=== PATIENT | female | born 1950 | race Caucasian/White ===

== ENCOUNTER 2022-05-21 13:03 | Emergency (ER) | payer OTHER, SELFPAY ==
[2022-05-21 13:40] VITALS: BP 193/94; PULSE 72; RESP 16; TEMP 36.3; O2SAT 97; BMI 26.1
--- NOTE | 2022-05-21 15:41 | CRLHL7_ITS ---
For Patients: As a result of the Century Cures Act, medical imaging exams and procedure reports are released immediately into your electronic medical record. You may view this report before your referring provider. If you have questions, please contact your health care provider. Indication: Left-sided tingling, hypertension Technique: Multiplanar, multisequence MRI of the brain obtained without contrast. Comparison: No relevant comparison studies available at this institution. Findings: The ventricles and cortical sulci appear within normal limits for age. No hydrocephalus or herniation. No acute/subacute ischemia, intracranial hemorrhage or abnormal extra-axial fluid collection. Scattered foci of FLAIR hyperintensity are noted throughout the supratentorial white matter bilaterally. Midline structures are unremarkable. Major expected intracranial flow voids are visualized. Bone marrow signal is unremarkable. No suspicious findings in the regional soft tissues. Scattered ethmoid sinus mucosal thickening, with lobulated mucous retention cysts/polyps in both maxillary sinuses. A few nonspecific fluid-filled left mastoid air cells. Unremarkable included orbits. Impression: 1. No evidence of acute intracranial abnormality. 2. 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 Dictated by Keri Marshall MD @ 05/21/2022 4:52:17 PM (Electronically Signed)
[2022-05-21 15:59] LABS: Basophils Absolute Auto 0.02 K/uL (0.00-0.30); Basophils Percent Auto 0.3 % (0.0-3.0); Eosinophils Absolute Auto 0.09 K/uL (0.00-0.50); Eosinophils Percent Auto 1.4 % (0.0-7.0); Hematocrit 47.9 % (33.0-51.0); Hemoglobin* 15.6 gm/dL (12.0-16.0); Immature Granulocytes Abs Auto 0.01 K/uL (0.00-0.30); Immature Granulocytes Pct Auto 0.2 %; Lymphocytes Absolute Auto 2.11 K/uL (0.90-2.90); Lymphocytes Percent Auto 32.2 % (20-44); Mean Corpuscular HGB Conc 33 gm/dL (32-36); Mean Corpuscular Hemoglobin 30 pg (26-34); Mean Corpuscular Volume 93 fL (80-100); Monocytes Percent Auto 8.1 % (0.0-11.0); Neutrophils Percent Auto 57.8 % (42.0-72.0); Platelet Count* 289 K/uL (140-440); RDW Coefficient of Variation % 12.7 % (11.5-15.5); Red Blood Count 5.16 m/uL (4.00-5.20); White Blood Count* 6.56 K/uL (4.50-11.00)
--- NOTE | 2022-05-21 16:04 | ED_ITS ---
HPI - General Adult General Date Seen: 05/21/22 Chief complaint: Altered Mental Status Stated complaint: Brain fog Time Seen by Provider: 05/21/22 15:28 Source: patient Mode of arrival: ambulatory Limitations: no limitations History of Present Illness HPI narrative: Patient is a 72-year-old woman with past medical history of hypertension, generally reasonably controlled, sent here from urgent care for further evaluation of some paresthesias in her left arm and leg as well as a poorly characterized head symptom. She says she has been having symptoms for about a week now. Most days she has tingling in her left arm and leg although it does not last all day, kind of comes and goes, sometimes lasts an hour or 2, sometimes last longer. She has not had any motor deficits. She says the tingling in her legs on the outside and back of her leg, tingling in her arms on the outside of her arm. When specifically asked, she says she has a little bit of tingling in her face on the left side as well. She initially said that she had a ?brain fog sensation on the left side of her head, as if her brain was not getting enough oxygen. Trying to clarify exactly what she was feeling was difficult. She says her head feels full or like it is going to explode, sometimes she has a headache but it is migratory, sometimes in the back, sometimes on the side and sometimes in front. Right now she has a little bit of a headache in the back of her head. No severe headaches. No trauma. No vomiting. No history of stroke. She has been on lisinopril 20 mg daily for about a year and a half and thinks blood pressures are usually okay although she does not check regularly. She does not smoke. Her mom had a stroke she reports at age 24 but is now in her 90s and has no residual effects. Related Data Home Medications Medication Instructions Recorded Confirmed lisinopril 20 mg tablet 20 mg PO DAILY 05/21/22 05/21/22 Allergies Allergy/AdvReac Type Severity Reaction Status Date / Time prochlorperazine Allergy Severe Verified 05/21/22 13:57 [From Compazine] Review of Systems Status of ROS: Reports: 10 or more systems reviewed and unremarkable except as noted in History and below PFSH PFSH Social History Smoking Status: Unknown if ever smoked How often do you have a drink containing alcohol: 2-4 times a month How often do you have six or more drinks on one occasion: Never AUDIT-C Alcohol total score: 2 Non-prescribed substance use: denies use Exam Narrative: Exam Narrative: Vital signs as noted above. In general, an alert, well-appearing patient. Looks comfortable, breathing easily. Head: Normocephalic, atraumatic. Eyes: Pupils are equal reactive. Extraocular movements are full. Conjunctivae are normal. ENT: Mucous membranes are moist. Throat is normal. Neck: Supple without lymphadenopathy. Heart: Regular rate and rhythm. No murmur or rub. Lungs: Clear bilaterally. No increased work of breathing, crackles or wheezes. Abdomen: Soft and nontender. No organomegaly. Extremities: Well perfused. No edema. No calf tenderness. Pulses intact. Neurologic: Patient is alert and oriented to person and place. Speech is fluent. Face is symmetric. Moves all extremities equally. Strength is 5 of 5 bilaterally. Sensation is intact, she says she has a pins and needle sensation on the left arm and leg, as well as to a lesser extent on her face. Cerebellar function is intact by finger-nose testing. Gait is normal. Affect: Labile. Skin: Warm and dry. Well perfused. Const: Vital Signs, click to edit/add: Vital Signs - 24 hr 05/21/22 13:40 05/21/22 18:17 Temperature 97.3 F L Pulse Rate [Right Pulse Oximeter] 72 Respiratory Rate 16 Blood Pressure [Ri ght Upper Arm] 193/94 H 174/92 H Pulse Oximetry 97 Oxygen Delivery Me thod Room Air Documenting provider has reviewed patient's vital signs: yes Course Course Hospital Course: Overall neurologic exam is unremarkable in terms of objective findings. She has somewhat atypical features in that her paresthesias are not affecting the entire extremity, she does not have any true numbness and no motor findings. However, she is persistently hypertensive, I think it is reasonable to rule out small stroke as the cause for her symptoms. I do not think CT is going to be very helpful today as I do not think this represents hemorrhage, so I am just going to do an MRI. This will let us look for other possible etiologies such as mass, MS. Will check some basic labs as well, thus far, CBC has shown a normal white blood cell count and hemoglobin of 15.6. Electrolytes are pending. Labs are entirely within normal limits. She remains somewhat hypertensive, but MRI was normal without evidence of infarct, mass, or other abnormalities. Mild small vessel changes. Discussed with patient I do not have a clear explanation for her left-sided paresthesias at this time, but there is no evidence of a worrisome central cause. I would recommend follow-up with her clinic doctor in the next week or so for recheck of her symptoms as well as recheck of her blood pressure as per medication may need to be adjusted. Return at any time for acute worsening Vital Signs Vital signs: Initial Vital Signs Temperature 97.3 F L 05/21/22 13:40 Temperature Source Temporal Artery Scan 05/21/22 13:40 Pulse Rate 72 05/21/22 13:40 Respiratory Rate 16 05/21/22 13:40 Blood Pressure 193/94 H 05/21/22 13:40 Blood Pressure Mean 127 05/21/22 13:40 Blood Pressure Position Sitting 05/21/22 13:40 Pulse Oximetry 97 05/21/22 13:40 Oxygen Delivery Method Room Air 05/21/22 13:40 Vital Signs Temperature 97.3 F L 05/21/22 13:40 Pulse Rate 72 05/21/22 13:40 Respiratory Rate 16 05/21/22 13:40 Blood Pressure 193/94 H 05/21/22 13:40 Pulse Oximetry 97 05/21/22 13:40 Oxygen Delivery Method Room Air 05/21/22 13:40 Temperature 97.3 F L 05/21/22 13:40 Pulse Rate 72 05/21/22 13:40 Respiratory Rate 16 05/21/22 13:40 Blood Pressure 174/92 H 05/21/22 18:17 Pulse Oximetry 97 05/21/22 13:40 Oxygen Delivery Method Room Air 05/21/22 13:40 Medical Decision Making Lab Data Labs: Lab Results 05/21/22 Range/Units 15:50 WBC 6.56 (4.50-11.00) K/uL RBC 5.16 (4.00-5.20) m/uL Hgb 15.6 (12.0-16.0) gm/dL Hct 47.9 (33.0-51.0) % MCV 93 (80-100) fL MCH 30 (26-34) pg MCHC 33 (32-36) gm/dL RDW Coeff of Yun 12.7 (11.5-15.5) % Plt Count 289 (140-440) K/uL Neut % (Auto) 57.8 (42.0-72.0) % Lymph % (Auto) 32.2 (20-44) % Cottle % (Auto) 8.1 (0.0-11.0) % Eos % (Auto) 1.4 (0.0-7.0) % Baso % (Auto) 0.3 (0.0-3.0) % Neut # (Auto) 3.80 (1.7-7.0) K/uL Lymph # (Auto) 2.11 (0.90-2.90) K/uL Cottle # (Auto) 0.50 (0.00-0.90) K/UL Eos # (Auto) 0.09 (0.00-0.50) K/uL Baso # (Auto) 0.02 (0.00-0.30) K/uL ESR <7 L (2-20) mm/hr Sodium 141 (135-149) mmol/L Potassium 4.3 (3.6-5.1) mmol/L Chloride 108 (96-114) mmol/L Carbon Dioxide 28 (20-32) mmol/L BUN 14 (7-30) mg/dL Creatinine 0.8 (0.5-1.5) mg/dL Estimated Creat Clear 46.43 Estimated GFR 79 ml/min Glucose 104 (60-115) mg/dL Calcium 9.8 (8.4-10.6) mg/dL Magnesium 2.1 (1.5-2.6) mg/dL C-Reactive Protein < 0.5 L (0.5-1.0) mg/dL Discharge Plan Discharge Clinical Impression: Paresthesia, Hypertension Patient Disposition: Home, Self-Care Condition: Stable Additional Instructions: Follow-up with primary care in the next week for recheck of your symptoms and blood pressure. Return at any time for acute worsening. Prescriptions: No Action lisinopril 20 mg tablet 20 mg PO DAILY Follow Up/Referrals: Provider,Not a Local [Primary Care Provider] - Stand Alone Forms: [employer] Info Instructions
[2022-05-21 16:07] LABS: Slide Review Reflex No
[2022-05-21] MEDS: ASPIRIN 81 MG TAB.CHEW 324 MG PO (16:08)
[2022-05-21] MEDS: LORazepam 2 MG/ML inj 1 MG IVP (16:08)
[2022-05-21 16:12] LABS: Chloride* 108 mmol/L (96-114); Sodium* 141 mmol/L (135-149)
[2022-05-21 16:13] LABS: Potassium* 4.3 mmol/L (3.6-5.1)
[2022-05-21 16:15] LABS: Creatinine* 0.8 mg/dL (0.5-1.5); Est. Creatinine Clearance* 46.43; Estimated Glomerular Filt Rate 79 ml/min
[2022-05-21 16:16] LABS: Blood Urea Nitrogen* 14 mg/dL (7-30); Calcium* 9.8 mg/dL (8.4-10.6); Carbon Dioxide* 28 mmol/L (20-32); Glucose* 104 mg/dL (60-115); Magnesium* 2.1 mg/dL (1.5-2.6)
[2022-05-21 16:20] LABS: C Reactive Protein* < 0.5 mg/dL (0.5-1.0)
[2022-05-21 17:02] LABS: Erythrocyte SedimentationRate* <7 mm/hr (2-20)
[2022-05-21 18:17] VITALS: BP 174/92
== END 2022-05-21 18:52 | disposition home or self-care (01) ==
PROVIDERS: Emergency Provider Emergency Medicine
DX: R20.2 Paresthesia of skin (principal); I10 Essential (primary) hypertension
CPT/HCPCS: 36415; 70551; 80048; 83735; 85025; 85651; 86140; 93005; 96374; 99284; A9270; J2060

== ENCOUNTER 2023-09-11 09:52 | Outpatient (CLI) | payer MEDICARE, SELFPAY ==
--- OUTSIDE RECORDS SUMMARY | 2023-09-12 11:05 | XMS_ITS | Clinical Summary ---
Author Organization [facility] Address [address] [place] [address] Care Team Providers Care Recruiting Consultant Name Role Phone [facility]- Primary Care Provider Allergies Active Allergy Reactions Criticality Noted Date Comments Compazine Other (See Comments) 02/25/2013 Jaw locks Medications Medication Sig Dispensed Refills Start Date End Date Status oxyCODONE (ROXICODONE) 5 MG tablet Take 0.5-1 tablets (2.5-5 mg) by mouth every 6 hours as needed for severe pain 10 tablet 03/03/2023 Active ondansetron (ZOFRAN ODT) 4 MG ODT tab Take 1 tablet (4 mg) by mouth every 6 hours as needed for nausea 10 tablet 03/03/2023 Active lidocaine (LIDODERM) 5 % patch Place 1-2 patches onto the skin every 24 hours 15 patch 03/03/2023 Active Active Problems Problem Noted Date Diagnosed Date Osteoarthrosis of knee 04/28/2014 Pneumothorax, right 07/30/2013 Right shoulder pain 07/06/2013 Rotator cuff (capsule) sprain 01/05/2013 Social History Tobacco Use Types Packs/Day Years Used Date Smoking Tobacco: Some Days Smokeless Tobacco: Never Alcohol Use Standard Drinks/Week Comments Yes 0 (1 standard drink = 0.6 oz pur e alcohol) Adolescent Education Answer Date Record ed Getting School Help Needed Not on file 12/02 Sex and Gender Information Value Date Recorded Sex Assigned at Not on file Gender Identity Not on file Sexual Orientation Not on file Last Filed Vital Signs Vital Sign Reading Time Taken Comments Blood Pressure 141/81 03/05/2023 12:50 PM CONDENSER OPERATOR Pulse 73 03/05/2023 12:30 PM CONDENSER OPERATOR Temperature 36.6 ??C (97.8 ??F) 03/05/2023 12:[address] Respiratory Rate 16 03/05/2023 11:55 AM CONDENSER OPERATOR Oxygen Saturation 96% 03/05/2023 12:50 PM CONDENSER OPERATOR Inhaled Oxygen Concentration - - Weight 70.3 kg (155 lb) 03/03/2023 2:56 AM CONDENSER OPERATOR Height 165.1 cm (5' 5) 03/03/2023 2:56 AM CONDENSER OPERATOR Body Mass Index 25.79 03/03/2023 2:56 AM CONDENSER OPERATOR Plan of Treatment Health Maintenance Due Date Last Done Comments ADVANCE CARE PLANNING 1950 ANNUAL REVIEW OF HM ORDERS 1950 CT COLONOGRAPHY 1950 DEXA 1950 FLEX SIG 1950 sDNA (Cologuard) 1950 Pneumococcal Vaccine: 65+ Years (1 of 2 - PCV) 1957 HEPATITIS C SCREENING 1969 LIPID 1991 LUNG CANCER SCREENING 2001 ZOSTER IMMUNIZATION (1 of 2) 2001 RSV VACCINE ( & 60+) (1 - 1-dose 60+ series) 2011 FALL RISK ASSESSMENT 2016 FIT 11/01/2017 11/01/2016 DTAP/TDAP/TD IMMUNIZATION (2 - Td or Tdap) 08/28/2021 08/29/2011 MAMMO SCREENING 08/10/2022 08/10/2020 COVID-19 Vaccine ( - season) 2022 PHQ-2 (once per calendar year) 2023 MEDICARE ANNUAL WELLNESS VISIT 07/26/2023 07/25/2022, 08/18/2020, 08/18/2020, Additional history exists INFLUENZA VACCINE (#1) 2023 GLUCOSE 03/05/2026 03/05/2023, 10/19, 08/01/2013, Additional history exists COLONOSCOPY 02/17/2027 02/17/2017 COLORECTAL CANCER SCREENING 02/17/2027 HPV IMMUNIZATION Aged Out No longer e ligible based on patient's age to complete this topic IPV IMMUNIZATION Aged Out No longer e ligible based on patient's age to complete this topic MENINGITIS IMMUNIZATION Aged Out No l onger eligible based on patient's age to complete this topic RSV MONOCLONAL ANTIBODY Aged Out No l onger eligible based on patient's age to complete this topic Procedures Procedure Name Priority Date/Time Associated Diagnosis Comments BASIC METABOLIC PANEL STAT 03/05/2023 12:53 PM CONDENSER OPERATOR MA SCREENING DIGITAL BILATERAL Routine 08/10/2020 1:31 PM CDT Visit for screening mammogram OCCULT BLOOD STOOL Routine 11/01/2016 6: 00 PM CDT Bloody diarrhea from Last 3 Months or Most Recently Relevant to Health Maintenance Results * (ABNORMAL) Basic metabolic panel (BMP) (03/05/2023 12:53 PM CONDENSER OPERATOR) Sodium 140 135 - 145 mmol/L 03/05/2023 1:27 PM [facility] Comment:Reference intervals for this test were updated on 11/13/2022 to more accurately reflect our healthy population. There may be differences in the flagging of prior results with similar values performed with this method. Interpretation of those prior results can be made in the context of the updated reference intervals. Potassium 5.0 3.4 - 5.3 mmol/L 03/05/2023 1:27 PM [facility] Chloride 102 98 - 107 mmol/L 03/05/2023 1:27 PM [facility] Carbon Dioxide (CO2) 28 22 - 29 mmol/L 03/05/2023 1:27 PM [facility] Anion Gap 10 7 - 15 mmol/L 03/05/2023 1:27 PM [facility] Urea Nitrogen 23.7(H) 8.0 - 23.0 mg/dL 03/05/2023 1:27 PM [facility] Creatinine 1.19(H) 0.51 - 0.95 mg/dL 03/05/2023 1:27 PM [facility] GFR Estimate 49(L) >60 mL/min/1. 73m2 03/05/2023 1:27 PM [facility] Calcium 9.7 8.8 - 10.2 mg/dL 03/05/2023 1:27 PM CONDENSER OPERATOR [facility] Glucose 109(H) 70 - 99 mg/dL 03/05/2023 1:27 PM CONDENSER OPERATOR [facility] Blood STRUCTURE OF LEFT UPPER LIMB / Unknown Venipuncture / Unknown 03/05/2023 12:53 PM CONDENSER OPERATOR 03/05/2023 12:59 PM CONDENSER OPERATOR Ben Pickens MD LAB - BLOOD ORDER [facility] [address] Lab (1st floor, no room number) [place] [address], [facility] [phone] * *MA Screening Digital Bilateral (08/10/2020 1:31 PM CDT) Anatomical Region Laterality Modality Breast Bilateral Mammography Impressions 08/15/2020 2:18 PM CDT IMPRESSION: BI-RADS CATEGORY: 1 - ??NEGATIVE. RECOMMENDED FOLLOW-UP: Annual Mammography. The patient will be notified of the results. DANIA MOSER MD Narrative 08/15/2020 2:18 PM CDT Examination: Bilateral digital screening mammography with computer aided detection, 08/10/2020 1:31 PM. Comparison: 06/24/13. 11/21/10 History: No current breast concerns. BREAST DENSITY: Scattered fibroglandular densities. COMMENTS: ??No suspicious finding. Procedure Note Dania Moser MD - 08/15/2020 Examination: Bilateral digital screening mammography with computer aided detection, 08/10/2020 1:31 PM. Comparison: 06/24/13. 11/21/10 History: No current breast concerns. BREAST DENSITY: Scattered fibroglandular densities. COMMENTS: No suspicious finding. IMPRESSION: BI-RADS CATEGORY: 1 - NEGATIVE. RECOMMENDED FOLLOW-UP: Annual Mammography. The patient will be notified of the results. DANIA MOSER MD Mary Ann Montesinos MD IMG MAMMOGRAPHY ORDERABLES * (ABNORMAL) Occult blood stool (11/01/2016 6:00 PM CDT) Occult Blood Positive(A ) NEG^Negati ve 11/06/2016 8:55 AM CDT [facility] Stool specimen (specimen) 11/01/2016 6:00 PM CDT 11/06/2016 8:48 AM CDT Brook Mascorro MD LAB - STOOLS LIZZIE Whitman Organization Address City/State/ZIP Co de Phone Number [facility] [address] [place] [address], [facility] [phone] from Last 3 Months or Most Recently Relevant to Health Maintenance Advance Directives For more information, please contact: [phone] Documents on File Type Date Recorded Patient Supervisor Mold Shop Expl anation Advance Directives and Living Will 07/30/2013 11:58 AM Health Care Directiv e 02-15-2011 Care Teams Recruiting Consultant Relationship Specialty Start Date End Date [facility]- [address] [place] [address] PCP - General 07/09/22
--- OUTSIDE RECORDS SUMMARY | 2023-09-12 11:05 | XMS_ITS | Referral Summary ---
Author Organization [facility] Address [address] [place] [address] Care Team Providers Care Sex Offender Treatment Professional Name Role Phone [facility]- Primary Care Provider Allergies Active Allergy Reactions [...] Comments Blood Pressure 141/81 03/05/2023 12:50 PM PHOTOENGRAVING SKETCH MAKER Pulse 73 03/05/2023 12:30 PM PHOTOENGRAVING SKETCH MAKER Temperature 36.6 ??C (97.8 ??F) 03/05/2023 12:[address] Respiratory Rate 16 03/05/2023 11:55 AM PHOTOENGRAVING SKETCH MAKER Oxygen Saturation 96% 03/05/2023 12:50 PM PHOTOENGRAVING SKETCH MAKER Inhaled Oxygen Concentration - - Weight 70.3 kg (155 lb) 03/03/2023 2:56 AM PHOTOENGRAVING SKETCH MAKER Height 165.1 cm (5' 5) 03/03/2023 2:56 AM PHOTOENGRAVING SKETCH MAKER Body Mass Index 25.79 03/03/2023 2:56 AM PHOTOENGRAVING SKETCH MAKER Plan of Treatment Not on file Procedures Procedure Name Priority Date/Time Associated Diagnosis Comments BASIC METABOLIC PANEL STAT 03/05/2023 12:53 PM PHOTOENGRAVING SKETCH MAKER MA SCREENING DIGITAL BILATERAL Routine 08/10/2020 1:31 PM CDT Visit for screening mammogram OCCULT BLOOD STOOL Routine 11/01/2016 6: 00 PM CDT Bloody diarrhea from Last 3 Months or Most Recently Relevant to Health Maintenance Results * (ABNORMAL) Basic metabolic panel (BMP) (03/05/2023 12:53 PM PHOTOENGRAVING SKETCH MAKER) [facility] Signature Sodium 140 135 - 145 mmol/L 03/05/2023 1:27 PM PHOTOENGRAVING SKETCH MAKER [facility] Comment:Reference intervals for this test were updated on 11/13/2022 to more accurately reflect our healthy population. There may be differences in the flagging of prior results with similar values performed with this method. Interpretation of those prior results can be made in the context of the updated reference intervals. Potassium 5.0 3.4 - 5.3 mmol/L 03/05/2023 1:27 PM PHOTOENGRAVING SKETCH [facility] Chloride 102 98 - 107 mmol/L 03/05/2023 1:27 PM PHOTOENGRAVING [facility]CH [facility] Carbon Dioxide (CO2) 28 22 - 29 mmol/L 03/05/2023 1:27 PM PHOTOENGRAVING SKETCH [facility] Anion Gap 10 7 - 15 mmol/L 03/05/2023 1:27 PM [facility]ENGRAVING [facility] [facility] Urea Nitrogen 23.7(H) 8.0 - 23.0 mg/dL 03/05/2023 1:27 PM [employer]OTOENGRAVING [facility]CH [facility] Creatinine 1.19(H) 0.51 - 0.95 mg/dL 03/05/2023 1:27 PM [facility]ENGRAVING [facility] [facility] GFR Estimate 49(L) >60 mL/min/1. 73m2 03/05/2023 1:27 PM PHOTOENGRAVING [facility]CH [facility] Calcium 9.7 8.8 - 10.2 mg/dL 03/05/2023 1:27 PM PHOTOENGRAVING [facility]CH [facility] Glucose 109(H) 70 - 99 mg/dL 03/05/2023 1:27 PM PHOTOENGRAVING SKETCH MAKER [facility] Blood STRUCTURE OF LEFT UPPER LIMB / Unknown Venipuncture / Unknown 03/05/2023 12:53 PM PHOTOENGRAVING SKETCH MAKER 03/05/2023 12:59 PM PHOTOENGRAVING SKETCH MAKER Ben Pickens MD LAB - BLOOD ORDER [facility] [address] Lab (1st floor, no room number) [place] [address], [facility] [phone] * *MA Screening Digital Bilateral (08/10/2020 1:31 [...] ) NEG^Negati ve 11/06/2016 8:55 AM CDT [facility] Stool specimen (specimen) 11/01/2016 6:00 PM CDT 11/06/2016 8:48 AM CDT Brook Mascorro MD LAB - STOOLS LIZZIE NEIL [facility] Organization Address City/State/ZIP Co de Phone Number [facility] [address] [place], [place] [address] [phone] from Last 3 Months or Most Recently Relevant to Health Maintenance Advance Directives For more information, please contact: [phone] Documents on File Type Date Recorded Patient Tobacco Sweeper Expl anation Advance Directives and Living Will 07/30/2013 11:58 AM Health Care Directiv e 02-15-2011 Care Teams Sex Offender Treatment Professional Relationship Specialty Start Date End Date [facility]- [address] [place] [address] PCP - General 07/09/22
--- OUTSIDE RECORDS SUMMARY | 2023-09-12 11:05 | XMS_ITS | Data Portability ---
Author Organization [facility], [id number] Address [address] [address] Assessment No assessment recorded. Plan of Treatment Reminders Order Date Submit Date Provider Last Modified By Organization Details Last Modified Time Details Appointments None recorded. Lab unlisted lab - HPV high risk DNA with 16/18 genotyping 2020 021 [facility], [address] [place], [address], 16:14:02 pap, LB 2020 021 [facility], [address] [place], [address], 16:15:18 Referral None recorded. Procedures None recorded. Surgeries None recorded. Imaging None recorded. Medication Orders None recorded. Patient TargetsNo targets recorded. Patient Instructions Encounter Date Encounter Id Patient Instructions Last Modified By Organization Details Last Modified Time 08/18/2020 [id number] - Encouraged breast self-awareness and monthly breast exams. - Recommend mammogram annually - Encouraged regular exercise. - Calcium, vitamin D, and weight bearing exercise for bone health. - Osteoporosis screening based on age and risk factors - Non gynecologic health concerns managed by primary care physician - Reviewed current cervical cancer screening guidelines. - Recommend colon cancer screening at appropriate intervals based on risk factors.Pt aware she is due - Return to clinic in 1 year [email or web address] Not available 08/19/2020 21:31:15 Reason for Referral None Reported. Results Created Date Observation Date Name Description Value Unit Range Abnormal Flag LastModifiedBy Organization Detail LastModifiedTime 08/19/19 21 08/18/2020 HPV HIGH RISK DNA WITH 16/18 GENOT YPING HPV high risk type 16 Negati ve for HPV type 16. negati ve for HPV type 16. Not Available [facility] [address] [place], [address], 08/24/2020 16:14:02 08/19/19 21 08/18/2020 HPV HIGH RISK DNA WITH 16/18 GENOT YPING HPV high risk type 18 Negati ve for HPV type 18. negati ve for HPV type 18. Not Available [facility] [address] [place], [address], 08/24/2020 16:14:02 08/19/19 21 08/18/2020 HPV HIGH RISK DNA WITH 16/18 GENOT YPING HPV other high risk types Negati ve for other high risk HPV types. negati ve for other high risk HPV types. Not Available [facility] [address], [place], [address], 08/24/2020 16:14:02 08/19/19 21 08/18/2020 PAP TEST (BLOCKLAYER CYTOL OGY) case report See note Not Available [facility] [address] [place], [address], 08/30/2020 16:15:18 Result Notes None recorded. Problems Name Status Onset Date Resolution Date Notes Provider Name and Address Organization Details Recorded Time Hypertensive disorder Active 08/20/19 21 [place] BEL[place] [address] [facility],[address], [place], [address], [place] [facility] 08/19/2020 21:28:55 Problem Notes None recorded. Procedures Surgical History Date Name Laterality Status Provider Name and Address Organization Details Recorded Time 08/19/19 21 Date of Last Pap Smear completed KP [facility] 08/24/2020 16:32:28 08/11/19 21 Date of Last Mammogram completed Karo Solano (TERMED) null, [facility] D[facility]ING ROOM HOSTESS 08/18/2020 15:24:39 02/18/19 18 Date of Last Colonoscopy completed Karo Solano (TERMED) null, [facility] DINING ROOM HOSTESS 08/18/2020 15:25:27 02/18/18 78 colposcopy completed COLLEEN BELTRÁ[place] [address] [address] [facility],[address], [place], [address], Count includes the [facility] D[facility] ROOM [facility] 08/12/2020 17:42:51 ligation of bilateral fallopian tubes completed [place] BELTR[place] [address], [place], [address], Count includes the [facility] D[facility] ROOM [facility] 08/12/2020 17:42:59 catheter ablation of arrhythmogenic focus completed [place] BELTRÁ[place] [address], [place], [address], Count includes the [facility] 08/12/2020 17:43:15 biopsy of breast completed [place] BELTR[place] [address] [address], [place], [address], Count includes the [facility] D[facility] ROOM [facility] 08/12/2020 17:43:36 blepharoplasty completed [place]EN BELTRÁ[place] [address] [address], [place], [address], Count includes the [facility] RO[facility] 08/12/2020 17:43:48 Imaging Results None recorded. Procedure Notes None recorded. Medical Equipment None Reported. Allergies Allergen ID Allergen Name Allergen Category Reaction Reaction Severity Criticality Documentation Date Start Date Code Code System Note Provider Name and Address Organization Details Recorded Time [id number] Compazine medicatio n Not available Not available Not available 08/18/2020 6 RxNorm Karo Solano (TERMED) null, [facility] D[facility] RO[facility] 15:23:05 Medications Name Sig Start Date Stop Date Status Note LastModified by Organization Details LastModified Time lisinopril 10 mg tablet TAKE 1 TABLET BY MOUTH EVERY DAY active Not Available Not Available No t Available hydroxyzine HCl 25 mg tablet TAKE 1 TO 2 TABLETS BY MOUTH ONCE DAILY AT NIGHT FOR BRUXISM active Not Available Not Available No t Available lisinopril 5 mg tablet TAKE 1 TABLET BY MOUTH EVERY DAY 08/18 completed Not Available Not Available Not Available Baby Aspirin active Not Available Not Available Not Available Vitals Date Recorded Body weight Body mass index (BMI) Body height Systolic blood pressure Diastolic blood pressure Provider Name and Address Organization Details Last Updated DateTime 08/18/2020 20498.13 g 25.2 kg/m2 167.64 cm 122 mm[Hg] 62 mm[Hg] Karo Solano (TERMED) [place] [facility] 15:22:52 Social History Question Answer Notes LastModified by Organizat ion Details LastModified Time Tobacco Smoking Status Former [place] BEL[place] [address] [facility],[address], [place], [address], [facility] 08/12/2020 17:41:22 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 Mental Status None recorded. Family History Relationship Description Onset Age of this Age Resolved Age Notes Father Malignant tumor of colon Mother Malignant tumor of colon Medical History Condition Response Cardiology- High Blood Pressure Y Gynecological History Statement/Question Response Sexually Active Y History of Abnormal PAP Y HPV Test Negative Date of Last Mammogram 08/10/2020 Date of Last Colonoscopy 02/18/2017 History of Cervical Dysplasia Y Current Control Method Menopause Date of Last Pap Smear 08/18/2020 Date of Last Cholesterol Screening 05/19 Date of last bone density Obstetrics History GPAL:G 2 P 2 0 0 2 Type Value Full Term 2 Living 2 Total 2 Past Encounters Encounter ID Performer Location Encounter Start Date Encounter Closed Date Diagnosis/Indication Diagnosis SNOMED-CT Code [id number] COLLEEN BELTRÁN MD [id number] [facility] [address],[facility] [address] [place] [address] 08/18/2020 14:41:51 08/18/2020 16:05:24 Gynecologic examination [id number] Health Concerns Section Related Observation LastModified by Organization Detai ls LastModified Time None Recorded Concern Status LastModified by Organization Details LastModified Time None Recorded Advance Directives Directive None Recorded Payers Encounter Date Sequence Insurance Name Policy Number Policy Thompson Covered Member ID Thompson Member ID Guarantor Name 08/18/2020 1 MED[employer] - DOS ON OR AFTER 2020 - [employer] GOVERNMENT PROGRAMS - ADVANTAGE SOLUTION (MEDICARE REPLACEMENT/A DVANTAGE - PPO) [id number] Ernestine A Bedeaux [id number] Ernestine A Bedeaux Notes Date Note Type Note Provider Name and Address Organization Details Recorded Time 08/18/2020 text/html HPI Notes: Valeria vale Postmenopausal ([facility]) Reported by patient. Patient Relationship To Practice: former patient returning Current Medical History: active medical problems stable; no recent surgeries or hospitalizations Relevant Family History: family history of colon cancer; no family history of breast cancer; no family history of ovarian cancer Menopausal Symptoms: not present HRT: not currently on HRT Vaginal Bleeding: no Sexually Active: Yes: same partner Mammogram: up-to-date Pap Smear +/- HPV Cotesting: due Thyroid/Lipid Screening: up-to-date Colonoscopy: due Patient has: Primary Care Physician: yes ([facility]) last here 2013. 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 No BLOCKLAYER concerns [place] BEL[place] [address] [facility],[address], [place], [address], [place] [facility] 08/19/2020 21:32:12 OBGyn Episode No OBEpisode recorded.
== END 2023-09-11 09:53 | disposition home or self-care (01) ==
PROVIDERS: PCP Physician Assistant Medical; Referring Provider Physician Assistant Medical; Visit Provider Physician Assistant Medical
DX: I10 Essential (primary) hypertension (principal); Z13.6 Encounter for screening for cardiovascular disorders; Z13.0 Encounter for screening for diseases of the blood and blood-forming organs and certain disorders involving the immune mechanism
CPT/HCPCS: 80053; 80061

== ENCOUNTER 2024-11-23 14:20 | Outpatient (CLI) | payer MEDICARE, SELFPAY | END 2024-11-23 14:21 | disposition home or self-care (01) | LOC: NFLDREF 11-25 19:54 | PROVIDERS: PCP Physician Assistant Medical; Referring Provider Physician Assistant Medical; Visit Provider Physician Assistant Medical | DX: I10 Essential (primary) hypertension (principal); E78.5 Hyperlipidemia, unspecified; E55.9 Vitamin D deficiency, unspecified | CPT/HCPCS: 80053; 80061; 82306 ==